=== PATIENT | male | born 1995 | race Two or more races ===

== ENCOUNTER 2019-06-19 15:11 | Emergency (ER) | payer MEDICAID ==
[~2019-06-19] VITALS: Ht 182.9 cm; Wt 100.0 kg
[2019-06-19 15:31] VITALS: BP 120/83
[2019-06-19] MEDS ORDERED: IBUPROFEN 600MG TABLET PO ONE (16:30)
== END 2019-06-19 17:17 | disposition home or self-care (01) ==
LOC: ER 15:11
DX: S46.919A Strain of unspecified muscle, fascia and tendon at shoulder and upper arm level, unspecified arm, initial encounter (principal); V49.40XA Driver injured in collision with unspecified motor vehicles in traffic accident, initial encounter; Y93.89 Activity, other specified; Y92.410 Unspecified street and highway as the place of occurrence of the external cause
CPT/HCPCS: 99282